=== PATIENT | female | born 1990 | race Caucasian/White ===

== ENCOUNTER 2016-10-20 15:22 | Emergency (ER) | payer SELFPAY ==
[2016-10-20] MEDS: HYDROcodone /APAP 10/325 1 EACH TABLET PO ONE (15:50)
[2016-10-20] MEDS: AMOXICILLIN 500 MG CAPSULE PO ONE (15:50)
--- NOTE | 2016-10-20 15:57 | ED Physician Documentation ---
Sore Throat/Dental Pain - HISTORIAN Historian: patient, parent - HPI Stated Complaint: pain on left side of face/jaw Chief Complaint: Dental Pain Additional Information: dendtal fx and infection tooth 2 - worse arter child accidently head butt last noct Onset: hours (14) Context: Fractured Tooth, Abscess Associated Symptoms: denies: fever, chills Worsened By: heat, cold - ROS CONST: no problems CVS/RESP: none. denies: shortness of breath, palpitations GI/: nausea. denies: problems urinating, vomiting NEURO/PSYCH: none - PAST HX Past History: tonsillectomy Other History: denies: cardiac disease Allergies/Adverse Reactions: Allergies Allergy/AdvReac Type Severity Reaction Status Date / Time No Known Allergies Allergy Verified 10/20/16 15:30 Home Medications: Ambulatory Orders Medication Instructions Recorded NK [NK] 10/20/16 - SOCIAL HX Smoking History: less than 1 pack/day Alcohol Use: none Drug Use: none - FAMILY HX Family History: No - VITAL SIGNS Vital Signs: Vital Signs Temp Pulse Resp BP Pulse Ox 98.2 F 111 H 16 114/55 98 10/20/16 15:46 10/20/16 15:46 10/20/16 15:46 10/20/16 15:46 10/20/16 15:46 - REVIEWED ASSESSMENTS Nursing Assessment Reviewed: Yes Vitals Reviewed: Yes ED Results Lab/Radiology - Orders Orders: ED Orders Category Date Time Status Amoxicillin [Amoxil] Med 10/20/16 15:49 Discontinued 1,000 mg PO NOW ONE HYDROcodone /APAP 10/325 [[place] 10/325] Med 10/20/16 15:49 Discontinued 1 each PO NOW ONE Dental Pain Physical Exam - EXAM General Appearance: moderate distress, anxious (sitting cot kicking feet tears holding face) Eyes: eyes nml inspection Mouth/Throat: lips nml, pharynx nml, no air way problems. No: gums nml Ear/Nose: nml inspection. No: TM erythema Respiratory: no resp. distress, breath sounds nml. No: respiratory distress CVS: reg. rate & rhythm, heart sounds nml Abdomen: soft, non-tender Extremities: non-tender, nml ROM Skin: warm/dry, normal color. No: cyanosis, diaphoresis, jaundice Neuro/Psych: anxiety. No: weakness, numbness Discharge Clincal Impression: dental fracture and abscess Home Medications: Ambulatory Orders NK [NK] 10/20/16 Condition: Good Disposition: 01 HOME, SELF-CARE Decision to Admit: NO Decision Time: 15:59
[2016-10-20 16:11] VITALS: BP 121/86
== END 2016-10-20 16:09 | disposition home or self-care (01) ==
LOC: ED 15:22
DX: K02.9 Dental caries, unspecified (principal)
CPT/HCPCS: 99282

== ENCOUNTER 2017-12-27 21:39 | Emergency (ER) | payer SELFPAY ==
--- NOTE | 2017-12-27 21:51 | ED Physician Documentation ---
Sore Throat/Dental Pain - HISTORIAN Historian: patient - HPI Stated Complaint: dental pain Chief Complaint: Dental Pain Onset: days ago (3) Context: Abscess. denies: Foreign Body, Fractured Tooth Associated Symptoms: mild. denies: fever, chills, sore throat Worsened By: heat, cold Further Comments: yes (She states that she has had issue with abcess in the past . she cannot afford dental care she states. Denies a fever) - ROS CONST: no problems CVS/RESP: none GI/: denies: nausea, vomiting MS/SKIN/LYMPH: denies: rash NEURO/PSYCH: denies: anxiety, depression - PAST HX Past History: none Other History: none Immunizations: UTD Allergies/Adverse Reactions: Allergies Allergy/AdvReac Type Severity Reaction Status Date / Time No Known Allergies Allergy Verified 12/27/17 21:55 Home Medications: Ambulatory Orders Medication Instructions Recorded NK [NK] 10/20/16 - SOCIAL HX Smoking History: non-smoker Alcohol Use: none Drug Use: none - FAMILY HX Family History: No - VITAL SIGNS Vital Signs: Vital Signs Temp Pulse Resp BP Pulse Ox 121/86 10/20/16 16:09 - REVIEWED ASSESSMENTS Nursing Assessment Reviewed: Yes Vitals Reviewed: Yes Dental Pain Physical Exam - EXAM General Appearance: no acute distress, alert Head/Neck: head nml inspection Eyes: eyes nml inspection Mouth/Throat: lips nml, pharynx nml, other (right upper back gum with discharge ) Respiratory: no resp. distress, breath sounds nml, respiratory distress CVS: reg. rate & rhythm, heart sounds nml Abdomen: soft, no organomegaly, normal bowel sounds Skin: warm/dry, normal color Neuro/Psych: No: weakness, numbness, anxiety Discharge Clincal Impression: Dental abscess Referrals: Primary Doctor,No [Primary Care Provider] - 2 Days Additional Instructions: 1. Warm salt water gargles 2. Follow up with dental 3. Amoxicillin 500 mg TID x 10 days 4. Tylenol or Ibuprofen for pain 5. Return to ER for any concerns Condition: Stable Disposition: 01 HOME, SELF-CARE Decision to Admit: NO Date of Decison to Admit: 12/27/17 Decision Time: 22:01
[2017-12-27] MEDS ORDERED: AMOXICILLIN 500 MG CAPSULE PO ONE (22:00)
[2017-12-27 22:11] VITALS: BP 132/84
== END 2017-12-27 22:10 | disposition home or self-care (01) ==
LOC: ED 21:39
DX: K04.7 Periapical abscess without sinus (principal)
CPT/HCPCS: 99283